=== PATIENT | male | born 1930 | race Caucasian/White ===

== ENCOUNTER 2019-07-03 21:03 | Inpatient (IN) | payer MEDICARE ==
[~2019-07-03 21:03] MED LIST: LEVOFLOXACIN500 MG PO; MUCINEX600 MG PO
--- NOTE | 2019-07-04 01:30 | NUR ---
NEW ADMIT TO DOCTOR YOUNG FOR [facility] RELATED TO ALTERED MENTAL STATUS. RECEIVED FROM EMS CREW. PATIENT REPORTEDLY COMBATIVE DURING TRANSPORT BUT CALM UPON ARRIVAL TO [facility]. PATIENT DAUGHT CALLED AND ADMIT CONSENT RECEIVED. DNR STATUS RECEIVED. CODE WORD OF CRUISIN RECEIVED. PATIENT BECAUSE INCREASING AGITATED AND ANXIOUS AFTER ARRIVAL. ATTEMPTS TO STAND WITHOUT ASSIST. UNABLE TO REDIRECT. PRN ATIVAN 0.5 MG IM GIVEN FOR ANXIETY AND PRM HALDOL 2 MG IM GIVEN FOR ONSET OF UNSAFE PSYCHOTIC BEHAVIOUR. CONTINUE TO MONITOR FOR SAFETY.
[2019-07-04] MEDS ORDERED: TENORMIN25 MG PO (01:49)
[2019-07-04] MEDS ORDERED: LISINOPRIL20 MG PO (01:52)
[2019-07-04] MEDS ORDERED: REMERON15 MG PO (01:52)
[2019-07-04] MEDS ORDERED: ZOLOFT50 MG (01:53)
[2019-07-04] MEDS ORDERED: MELATONIN 3 MG1 TAB (01:54)
[2019-07-04] MEDS ORDERED: OMEPRAZOLE20 M1 PO (01:55)
--- NOTE | 2019-07-04 02:29 | NUR ---
RESTING IN BED WITH EYES CLOED.
[2019-07-04 04:41] VITALS: BP 148/82; BMI 21.5
[2019-07-04 05:41] LABS: BASOPHILS 0.3 % (0-2); EOSINOPHILS 1.2 % (0-7); HEMATOCRIT 40.6 % (42.0-54.0); HEMOGLOBIN 13.7 g/dL (13.5-17.5); IMMATURE GRANULOCYTES 0.9 % (0-5); LYMPHOCYTES 17.9 % (15-50); MCH 31.6 pg (26.0-34.0); MCHC 33.7 g/dL (31.0-37.0); MCV 93.5 fL (80.0-100.0); MEAN PLATELET VOLUME 9.5 fL (7.4-10.4); MONOCYTES 6.7 % (2-11); PLATELET COUNT 173 10x3/uL (130-400); RBC 4.34 10x6/uL (4.20-6.10); RDW 14.9 % (11.5-14.5); WBC 9.7 10x3/uL (4.8-10.8)
[2019-07-04 06:29] LABS: ALBUMIN 3.1 g/dL (3.4-5.0); ANION GAP 17.4 mmol/L (8-16); BILIRUBIN - TOTAL 0.82 mg/dL (0.2-1.3); CALCIUM 8.4 mg/dL (8.5-10.1); CHOL - HDL RATIO 3.8 ratio (2.3-4.9); CREATININE - SERUM 1.7 mg/dL (0.6-1.3); LDL-HDL RATIO 2.3 ratio (1.5-3.5); POTASSIUM - SERUM 3.4 mmol/L (3.5-5.1); PROTEIN - SERUM 6.8 g/dL (6.4-8.2); THYROID STIMULATING HORMONE 5.16 uIU/mL (0.36-3.74)
[2019-07-04 08:00] VITALS: BP 174/93
--- NOTE | 2019-07-04 08:00 | NUR ---
PT IS AWAKE AND ALERT TO SELF ONLY. CALM AND COOPERATIVE WITH ASSESSMENT. PRESCRIBED MEDS PROVIDED ORDERED. MED COMPLIANT. PT CAN BE VERY DEMANDING AT TIMES WITH STAFF. PT YELLS OUT FOR NO REASON. HARD TO REDIRECT AT TIMES. REDIRECT AND REORIENT NEEDED. FALL PRECAUTIONS IN PLACE. WILL CPOC.
[2019-07-04 08:46] VITALS: Wt 77.8 kg
[2019-07-04 12:08] LABS: APPEARANCE HAZY (CLEAR); BILIRUBIN NEGATIVE (NEGATIVE); COLOR YELLOW (YELLOW); EPITHELIAL CELLS 0-5 /hpf (0-5); GLUCOSE NEGATIVE (NEGATIVE); KETONE SMALL mg/dL (NEGATIVE); NITRITE NEGATIVE (NEGATIVE); PROTEIN NEGATIVE (NEGATIVE); RED CELLS - URINE RARE /hpf (0-5); SPECIFIC GRAVITY 1.015 (1.005-1.020); UROBILINOGEN NORMAL (NORMAL)
[2019-07-04 12:10] LABS: AMORPHOUS SEDIMENT <1+ /lpf (NONE SEEN); BACTERIA FEW /hpf (NEGATIVE); GRANULAR CAST RARE /lpf (NONE SEEN); MUCUS <1+ /lpf (NONE SEEN)
[2019-07-04 20:00] VITALS: BP 158/78
--- NOTE | 2019-07-04 23:50 | NUR ---
B) Patient is alert and oriented to self, very needy and attention seeking, calling out to staff constantly wanting someone to do something for him constantly I) Administered scheduled medications as ordered, redirected as needed, R) Mediation compliant, intrusive and needy, P) Continue plan of care.
[2019-07-05 05:16] LABS: RAPID PLASMA REAGIN Non Reactive (Non Reactive)
--- NOTE | 2019-07-05 07:18 | NUR ---
The patient is confused. He has poor insight into his situation. He tries to stand to walk, but he is unable to walk and he has fallen before coming to [facility]. He asks a lot of questions and wants to be taken care of at that time. He is in a jacob chair and needs assistance to transfer. Provide prescribed meds. Continue POC.
--- NOTE | 2019-07-05 08:37 | PSY ---
PATIENT NAME:SARA POWER MEDICAL RECORD: [id number] : [birth year] LOCATION:[facility] ADMISSION DATE: 07/03/19 ACCOUNT: [id number] PSYCHIATRIC EVALUATION DATE OF EVALUATION: 07/04/19 IDENTIFYING DATA: The patient is 88 years old and he is admitted to the hospital on a voluntary basis. CHIEF COMPLAINT: Aggression. HISTORY OF PRESENT ILLNESS: The patient lives in a local intermediate and he became combative and aggressive with staff. The patient himself has no recollection of this. He was sent to the hospital for evaluation and treatment of these symptoms and was very aggressive and disorganized and required p.r.n. medication to calm him upon admission. Today, he is more cooperative. He is certainly calm, but he is denying that he would seek to harm himself. He also has no thoughts of harming others and has no recollection for the circumstances that brought him here. PAST MEDICAL HISTORY: Significant for hypertension, atrial fibrillation, chronic back pain, benign prostatic hypertrophy. PAST PSYCHIATRIC HISTORY: Significant for an established diagnosis of dementia, although I do not know who, when or how that diagnosis was made. FAMILY HISTORY: Unknown. ALLERGIES: AMBIEN, PENICILLIN AND BENADRYL. CURRENT MEDICATIONS: Include Atenolol, Levaquin, lisinopril, Remeron, Zoloft, melatonin, and Mucinex. SOCIAL HISTORY: The patient is . He does have adult children involved with his care. He is not able to provide much in the way of background history. He does not smoke. He does drink, but he denies it was ever excessive. MENTAL STATUS EXAMINATION: The patient is awake, alert and oriented to person, place and somewhat to time and situation. His mood is flat. His affect is constricted. Thought processes are circumstantial. Memory, concentration, and abstraction abilities are moderately impaired and he denies any intent to harm himself or others as well as psychotic symptoms. ASSETS: Supportive family members. LIABILITIES: Limited insight. DIAGNOSTIC IMPRESSION: AXIS I: Major neurocognitive disorder of the Alzheimer's type with behavioral disturbances. AXIS II: None. AXIS III: Hypertension, atrial fibrillation, chronic back pain, gastroesophageal reflux disease, benign prostatic hypertrophy. AXIS IV: Moderate. AXIS V: Global assessment of functioning is 30. PLAN: At this time, the patient is admitted to the hospital secondary to aggressive behavior associated with a dementing illness. He will be comprehensively evaluated from both a medical, psychological, and social standpoint. His long-term prognosis is guarded. TRANSINT:[id number] Voice Confirmation ID: [id number] DOCUMENT ID: [id number] MOJGAN YOUNG MD at 0837 CC: [id number] DICTATION DATE: 07/04/19 1345 DISTRIBUTION ENGINEER: 07/04/19 1404 ADM IN [place] [id number] [place] [address]
--- NOTE | 2019-07-05 09:40 | NUR ---
The patient said he needed to go to the bathroom right now. Took the patient to his room and he had explosive diarrhea in his pants and after he sat on the toilet. Obtained a CDT sample and sent it to the lab.
[2019-07-05 11:30] VITALS: BP 139/81
[2019-07-05 20:28] VITALS: BP 171/81
--- NOTE | 2019-07-06 00:39 | NUR ---
PATIENT IS VERY CONFUSED, HOLLERING OUT, CAN BE LITTLE COMBATIVE AT TIMES, HE IS DEMANDING, HE IS COMPLIANT WITH MEDS, NO SIDE EFFECTS NOTED. TOTALLY DEPENDENT WITH CARE. CAN MAKE HIS NEEDS KNOWN. WILL FOLLOW POC
[2019-07-06 09:56] VITALS: BP 173/97
--- NOTE | 2019-07-06 13:31 | NUR ---
Nutrition Follow-up: Diet: Regular PO intake: ~28% average x last 6 meals Last BM: . WT: 154# (07/04/19) Meds noted: cosme guerra. No new labs. Continue Regular diet. Will add Ensure with meals. RD following.
--- NOTE | 2019-07-06 14:34 | NUR ---
PATIENT CALM, CONFUSED, COOPERATIVE, DEMANDING AT TIMES, NO AGGRESSION NOTED, YELLS AT TIMES, MEDS ADMIN PER ORDERS WITH COMPLETE MED COMPLIANCE NOTED. CONT POC DIRECTED.
--- NOTE | 2019-07-06 15:22 | PN ---
PATIENT:SARA POWER MEDICAL RECORD: [id number] LOCATION:[facility] ADMISSION DATE: 07/03/19 PROGRESS NOTE DATE OF SERVICE: 07/05/2019 SUBJECTIVE: The patient's case was discussed with staff. He has no new complaint. OBJECTIVE: The patient is in good behavioral control. He has limited insight about his condition. He tolerates his medicines well. He is not eating adequately and did not sleep well last night. ASSESSMENT: Dementia. PLAN: The patient is going to be started on Megace to assist with appetite stimulation and I am going to give him trazodone to assist with sleep consolidation. TRANSINT:[id number] Voice Confirmation ID: [id number] DOCUMENT ID: [id number] MOJGAN YOUNG MD at 1522 CC: [id number] DICTATION DATE: 07/05/19 1018 PROJECT RESERVOIR ENGINEER: 07/05/19 1037 [facility] [address] [place] [address]
[2019-07-06 20:00] VITALS: BP 130/79
--- NOTE | 2019-07-06 21:22 | NUR ---
PATIENT IS VERY CONFUSED, HOLLERS OUT, DEMANDING, COMPLIANT WITH MEDS, NO ADVERSE REACTION TO MEDS NOTED, DEPENDENT UPON STAFF FOR CARE. WILL FOLLOW POC
[2019-07-07 08:02] VITALS: BP 174/92
--- NOTE | 2019-07-07 11:35 | NUR ---
PATIENT SEDATED THIS MORNING AND UNABLE TO TAKE MORNING MEDS.
[2019-07-07 12:10] LABS: T4 THYROXINE 6.7 ug/dL (4.7-13.3); THYROID STIMULATING HORMONE 2.48 uIU/mL (0.36-3.74)
--- NOTE | 2019-07-07 14:14 | PN ---
PATIENT:SARA POWER MEDICAL RECORD: [id number] LOCATION:[facility] ADMISSION DATE: 07/03/19 PROGRESS NOTE DATE OF SERVICE: 07/06/2019 SUBJECTIVE: The patient's case was discussed with staff. He has no new complaint. OBJECTIVE: The patient is in good behavioral control with limited insight about his condition. He is not sleeping adequately and he is not eating adequately. ASSESSMENT: Dementia. PLAN: I am going to continue the patient on the Megace for its appetite stimulating properties and will increase the dose of the trazodone. TRANSINT:[id number] Voice Confirmation ID: [id number] DOCUMENT ID: [id number] MOJGAN YOUNG MD at 1414 CC: [id number] DICTATION DATE: 07/06/19 1550 LOAN FUNDER: 07/07/19 [address] [facility] [address] [place] [id number]
--- NOTE | 2019-07-07 17:59 | NUR ---
The patient remains sleepy this pm, he awakened to let staff he had to go to the bathroom and then he fell back to sleep. He ate a few bites of dinner and went to sleep eating. No aggression at this time.
[2019-07-07 20:10] VITALS: BP 152/83
--- NOTE | 2019-07-07 21:44 | NUR ---
RECEIVED IN DAYROOM. RESTING IN RECLINER WITH EYES OPEN. CALM AND COOPERATIVE WITH CARE AND ASSESSMENT. NO AGGRESSIVE BEHAVIOR. REDIRECT AND REORIENT NEEDED. CONTINUES TO REST IN RECLINER AT THIS TIME. CONTINUE PLAN OF CARE.
[2019-07-08 08:00] VITALS: BP 151/84
--- NOTE | 2019-07-08 08:19 | NUR ---
The patient is sitting in the hallway screaming for water. Provided the patient two cups of water and he then continues to scream for water. He is in a jacob chair and asking staff to get him up so that he can walk. Provide prescribed meds. The patient will require crushed meds in pudding or food. Continue POC.
--- NOTE | 2019-07-08 12:03 | NUR ---
Offered the patient his lunch and offered to feed him, but he said "I need someone to massage my hand." He refused to eat at this time.
--- NOTE | 2019-07-08 12:10 | NUR ---
Offered to feed the patient, he refused, he said "I want you to move my hand." He did not want to be assisted to eat, he is drinking his ensure.
--- NOTE | 2019-07-08 13:05 | PN ---
PATIENT:SARA POWER MEDICAL RECORD: [id number] LOCATION:[facility] ADMISSION DATE: 07/03/19 PROGRESS NOTE DATE OF SERVICE: 07/07/2019 SUBJECTIVE: The patient's case was discussed with staff. He has no new complaint. OBJECTIVE: The patient is disorganized. He was quite agitated last night and received p.r.n. Haldol and Ativan. He has no recollection of this. He is clearly quite confused and easily agitated for reasons that are not entirely clear. ASSESSMENT: Dementia. PLAN: I am going to start the patient on a scheduled dose of Trilafon at bedtime. Trilafon is being used to help with his agitated behavior. He will be monitored for clinical changes associated with its use. TRANSINT:[id number] Voice Confirmation ID: [id number] DOCUMENT ID: [id number] MOJGAN YOUNG MD at 1305 CC: [id number] DICTATION DATE: 07/07/19 1559 RAILWAY ENGINEER: 07/08/19 0201 ADM IN [place] [id number] [place] [id number]
--- NOTE | 2019-07-08 19:58 | NUR ---
RECEIVED IN DAYROOM. SITTING IN A CHAIR WITH PEERS AT HIS SIDE. CALM AND COOPERATIVE WITH CARE AND ASSESSMENT. NO SIGNS OF AGGRESSION. CONTINUES TO SIT CALMLY IN DAYROOM. CONTINUE PLAN OF CARE
[2019-07-08 20:24] VITALS: BP 127/67
[2019-07-09 08:17] VITALS: BP 123/65
--- NOTE | 2019-07-09 09:10 | NUR ---
SPOKE WITH DR. GALAN ABOUT PT URINE RESULTS. NO GROWTH AT DAY ONE. NO SIGNIFICANT ABNORMALITIES NOTED IN URINE CULTURE. NO FEVER OR S/SX NOTED. NO NEW ORDER AT THIS TIME.
--- NOTE | 2019-07-09 10:00 | NUR ---
PT SITTING IN RECINLER CHAIR AT THIS TIME. NO ACUTE DISTRESS NOTED. PT DOES YELL OUT AT TIMES. REDIRECT AND REORIENT NEEDED. PT IS ALERT CONFUSED AND ORIENTED TO SELF ONLY. NO AGGRESSIVE BEHAVIOR NOTED AT THIS TIME. PT CAN MAKE SOME NEEDS KNOWN. PT COOPERATIVE WITH STAFF WITH ASSESSMENTS, VITALS AND MEDS. CHAIR ALARM IN PLACE AND ACTIVE. WILL CONT PLAN OF CARE.
--- NOTE | 2019-07-09 14:50 | NUR ---
SPOKE WITH PT SET DAUGHTER AT THIS TIME. PASSCODE GIVEN. SHE ASKED IF SHE THOUGHT PT WAS OKAY FOR VISITORS TODAY. NURSE INQUIRED WITH OTHER NURSE. PT BEHAVIOR HAS BEEN GOOD THIS SHIFT. VISITORS ALLOWED.
--- NOTE | 2019-07-09 15:25 | NUR ---
nurse applied barrier cream to front periarea and to head glans of penis. foreskin pulled down as well. applied cream to back periarea.
--- NOTE | 2019-07-09 18:16 | NUR ---
pt was eating dinner when he became choked. mht sat pt up and ceased feeding. pt took couple of sips of water per mht and did not swallow any of his water. nurse noted clear lung sounds bilateral anterior and posteior. will cont to monitor.
--- NOTE | 2019-07-09 19:22 | NUR ---
RECEIVED IN DAYROOM. RESTING IN RECLINER WITH EYES OPEN. CALM AND COOPERATIVE WITH CARE AND ASSESSMENT. NO AGGRESSIVE BEHAVIOR. REDIRECT AND REORIENT NEEDED. WATCHING TV AT THIS TIME. CONTINUE PLAN OF CARE.
[2019-07-09 20:29] VITALS: BP 101/60
--- NOTE | 2019-07-10 10:00 | NUR ---
ALERT, CALM, COOPERATIVE, NO BEHAVIORAL ISSUES NOTED AT THIS TIME. MEDS ADMIN PER ORDERS WITH COMPLETE MED COMPLIANCE NOTED. CONT POC DIRECTED.
[2019-07-10 10:23] VITALS: BP 146/82
--- NOTE | 2019-07-10 13:49 | PN ---
PATIENT:SARA POWER MEDICAL RECORD: [id number] LOCATION:[facility] ADMISSION DATE: 07/03/19 PROGRESS NOTE DATE OF SERVICE: 07/08/2019 SUBJECTIVE: The patient's case was discussed with staff. He has no new complaint. OBJECTIVE: The patient is in good behavioral control with limited insight about his situation. ASSESSMENT: Dementia. PLAN: Brief supportive and educational interventions were made. Long-term prognosis is guarded. TRANSINT:[id number] Voice Confirmation ID: [id number] DOCUMENT ID: [id number] MOJGAN YOUNG MD at 1349 CC: [id number] DICTATION DATE: 07/08/19 1405 MARKET RISK MANAGER: 07/08/19 1456 ADM IN [place] [id number] [place] [address]
--- NOTE | 2019-07-10 13:49 | PN ---
PATIENT:SARA POWER MEDICAL RECORD: [id number] LOCATION:[facility] ADMISSION DATE: 07/03/19 PROGRESS NOTE DATE OF SERVICE: 07/09/2019 SUBJECTIVE: The patient's case was discussed with staff. He has no new complaint. OBJECTIVE: The patient is in good behavioral control. He is eating and sleeping reasonably well. He has not been aggressive. He is only partially oriented and so far he has tolerated his medicines well. ASSESSMENT: Dementia. PLAN: Current medicines have been reviewed and will be maintained. I anticipate he can be transitioned out of the hospital soon if this level of improvement continues. TRANSINT:[id number] Voice Confirmation ID: [id number] DOCUMENT ID: [id number] MOJGAN YOUNG MD at 1349 CC: [id number] DICTATION DATE: 07/09/19 1239 MEDICAL CHEMIST: 07/09/19 1333 ADM IN [facility] [address] [place] [address]
[2019-07-10 20:31] VITALS: BP 127/56
--- NOTE | 2019-07-10 21:09 | NUR ---
RECEIVED IN DAYROOM. SITTING IN A RECLINER WITH STAFF BY HIS SIDE. CALM AND COOPERATIVE WITH CARE AND ASSESSMENT. NO SIGNS OF AGGRESSION. REDIRECT AND REORIENT NEEDED. RESTING IN BED WITH EYES CLOSED AT THIS TIME. CONTINUE PLAN OF CARE
[2019-07-11 10:10] VITALS: BP 129/69
--- NOTE | 2019-07-11 15:10 | PN ---
PATIENT:SARA POWER MEDICAL RECORD: [id number] LOCATION:[facility] ADMISSION DATE: 07/03/19 PROGRESS NOTE DATE OF SERVICE: 07/10/2019 SUBJECTIVE: The patient's case was discussed with staff. He has no new complaint. OBJECTIVE: The patient denies intent to harm himself or others. He is tolerating his medicines well. He is not overtly aggressive today. He does have some irritability. Unfortunately, he is not sleeping adequately, but he is receiving Megace to assist with appetite stimulation. TRANSINT:[id number] Voice Confirmation ID: [id number] DOCUMENT ID: [id number] MOJGAN YOUNG MD at 1510 CC: [id number] DICTATION DATE: 07/10/19 1557 WORK STATION SUPPORT SPECIALIST: 07/10/19 2300 ADM IN [facility] [address] [place] [address]
--- NOTE | 2019-07-11 15:58 | NUR ---
ALERT, CALM, COOPERATIVE, DEMANDING, NO AGGRESSION, CONT CONFUSION. COMPLIANT WITH MEDS, COOPERATIVE WITH PLAN OF CARE. CONT POC DIRECTED.
[2019-07-11 22:07] VITALS: BP 130/70
--- NOTE | 2019-07-12 00:52 | NUR ---
B) Patient is alert and oriuented to person and place, restless and anxious, demanding and yelling out I) Administered scheduled medications as ordered, PRN Ativan 0.5 mg IM and Haldol 2 mg IM at 19:59, R) Medication compliant, resting quietly in his bed now. P) Continue plan of care.
--- NOTE | 2019-07-12 09:41 | PN ---
PATIENT:SARA POWER MEDICAL RECORD: [id number] LOCATION:[facility] ADMISSION DATE: 07/03/19 PROGRESS NOTE DATE OF SERVICE: 07/11/2019 SUBJECTIVE: The patient's case was discussed with staff. He has no new complaint. OBJECTIVE: The patient is disorganized, but less agitated than he has been. He is easily angered, but can be redirected. I think that this does represent an improvement in his baseline level of functioning from when he initially presented here; however, it is not going to be practical on a long-term basis for him to always have staff in the room present with him. I do think that he is a potentially labile individual who will require high degree of supervision. I am going to start him on Namenda today. Hopefully, that will improve his cognitive processes some. TRANSINT:[id number] Voice Confirmation ID: [id number] DOCUMENT ID: [id number] MOJGAN YOUNG MD at 0941 CC: [id number] DICTATION DATE: 07/11/19 1553 STRAP BUCKLER MACHINE: 07/12/19 0400 ADM IN [facility] [address] [place] [address]
[2019-07-12 10:05] VITALS: BP 122/64
--- NOTE | 2019-07-12 19:36 | NUR ---
RECEIVED IN DAYROOM. SITTING IN A RECLINING CHAIR. CALM AND COOPERATIVE WITH CARE AND ASSESSMENT. NO SIGNS OF AGGRESSION. REDIRECT AND REORIENT NEEDED. RESTING IN A RECLINING CHAIR OUTSIDE OF NURSES STATION AT THIS TIME. CONTINUE PLAN OF CARE
[2019-07-12 20:29] VITALS: BP 127/72
--- NOTE | 2019-07-13 02:03 | NUR ---
IN [place] YELLING OUT LOUDLY. ATTEMPTS TO STAND WITHOUT ASSIST. VERY CONFUSED. INCREASING ANXIETY. PRN ATIVAN 0.5 MG GIVEN FOR ANXIETY. PRN HALDOL 2 MG IM GIVEN FOR ONSET OF UNSAFE PSYCHOTIC BEHAVIOR. CONTINUE TO MONITOR FOR SAFETY.
[2019-07-13 09:50] VITALS: BP 153/87
--- NOTE | 2019-07-13 14:21 | PN ---
PATIENT:SARA POWER MEDICAL RECORD: [id number] LOCATION:[facility] ADMISSION DATE: 07/03/19 PROGRESS NOTE DATE OF SERVICE: 07/12/2019 SUBJECTIVE: The patient's case was discussed with staff. He has no new complaint. OBJECTIVE: The patient is in good behavioral control today, but last night he required p.r.n. medication because of his agitation. In questioning him about the events, he has no recollection of what happened. Based on this, I am going to discontinue the Trilafon and we will start him on a scheduled dose of Geodon for his agitation. I am going to give him 20 mg at bedtime. TRANSINT:[id number] Voice Confirmation ID: [id number] DOCUMENT ID: [id number] MOJGAN YOUNG MD at 1421 CC: [id number] DICTATION DATE: 07/12/19 1032 HOSPICE CONSULTANT: 07/12/19 1300 ADM IN [place] [id number] [place] [id number]
--- NOTE | 2019-07-13 16:25 | NUR ---
Nutrition Follow-up: Diet: Regular [facility] Soft with Chopped Meats + Ensure with and inbetween meals PO intake: ~59% average x last 9 meals Last BM: 07/12/19 x 2. WT: 148.8# (07/03/19); refused weekly wts this week. Meds noted: cosme guerra. no new labs. Continue current diet and appetite stimulant. Encourage PO intake. RD following.
--- NOTE | 2019-07-13 17:31 | NUR ---
The patient is awake he has poor insight into his situation. He has not been yelling out as much today. He has been trying to eat and drink. He remains confused, but he has not shown any aggression today. The patient needs assist with transfers. He is sitting in a jacob chair. He tries to stand up on his own. Provide prescribed meds. The patient is compliant with meds. Continue POC.
--- NOTE | 2019-07-13 23:02 | NUR ---
RECEIVED PATIENT SITTING IN A CHAIR IN THE DAYROOM. PATIENT PULLS HIS CLOTHES OFF. YELLS AND CURSES. DEMANDING AND WILL TELL YOU TO LEAVE AND NEVER COME BACK. DISRUPTIVE TO UNIT. ADMINISTER MEDS AND MONITOR COMPLIANCE. REDIRECT FOR DISRUPTIVE BEHAVIORS. MED COMPLIANT. POOR REDIRECTION DUE TO IMPAIRED ABILITY TO PROCESS INFORMATION. CONTINUE POC AND PROVIDE SAFE ENVIRONMENT.
[2019-07-14 00:28] VITALS: BP 133/60
[2019-07-14 09:04] VITALS: BP 151/82
--- NOTE | 2019-07-14 14:44 | NUR ---
The patient is awake he has moments where he yells out and he has tried to get up out of his jacob chair, he sleeps intermittantly. He has not shown any aggression today, but he is confused and he has poor insight into his reality. Provide prescribed meds. The patient is compliant with meds. Continue POC.
--- NOTE | 2019-07-14 16:20 | PN ---
PATIENT:SARA POWER MEDICAL RECORD: [id number] LOCATION:[facility] ADMISSION DATE: 07/03/19 PROGRESS NOTE DATE OF SERVICE: 07/13/2019 SUBJECTIVE: The patient's case was discussed with staff. He has no new complaint. OBJECTIVE: The patient required p.r.n. medication last night because of some agitation. He has pretty limited insight about his situation. Today, he is fairly sleepy. ASSESSMENT: Dementia. PLAN: I am going to increase the patient's nighttime dose of trazodone to assist with sleep consolidation. Efforts now will be made to help him get back on an appropriate day-night schedule. His long-term prognosis is guarded. TRANSINT:[id number] Voice Confirmation ID: [id number] DOCUMENT ID: [id number] MOJGAN YOUNG MD at 1620 CC: [id number] DICTATION DATE: 07/13/19 1615 WELL SERVICE FLOOR WORKER: 07/14/19 0329 ADM IN [place] [id number] [place] [id number]
--- NOTE | 2019-07-14 18:46 | NUR ---
A phone call was made from a male that says he is a friend of Mr. Bautista Porter, but he did not have the code word. Explained to him that without a code word we can not confirm or deny the patient is here. he was very persistant saying he knew him for fifty years. Called the patient's daughter to let her be aware.
[2019-07-14 20:00] VITALS: BP 94/58
--- NOTE | 2019-07-15 00:20 | NUR ---
B) Patient is alert and oriented to person, demanding and attention seeking at times, calling out 'help me' anytime he sees staff I) Administered scheduled medications as ordered, redirected as ordered, R) Medication compliant, resting quietly now P) Continue plan of care.
[2019-07-15 09:09] VITALS: BP 141/85
--- NOTE | 2019-07-15 13:58 | PN ---
PATIENT:SARA POWER MEDICAL RECORD: [id number] LOCATION:[facility] ADMISSION DATE: 07/03/19 PROGRESS NOTE DATE OF SERVICE: 07/14/2019 SUBJECTIVE: The patient's case was discussed with staff. He has no new complaint. OBJECTIVE: The patient is in good behavioral control, although he has been restless. He is not eating or sleeping very well, but I am viewing yesterday as an isolated event. Since he had been eating and sleeping better on the whole. ASSESSMENT: Dementia. PLAN: The patient has improved. I think if this level of improvement continues, he can reasonably be discharged after the weekend. TRANSINT:[id number] Voice Confirmation ID: [id number] DOCUMENT ID: [id number] MOJGAN YOUNG MD at 1358 CC: [id number] DICTATION DATE: 07/14/19 1701 FAMILY ASSISTANT: 07/14/19 1847 ADM IN [facility] [address] [place] [address]
--- NOTE | 2019-07-15 16:08 | NUR ---
FAMILY HERE FOR VISIT, ALERT, CALM, COOPERATIVE, QUITE DEMANDING AT TIMES. MEDS ADMIN PER ORDERS WITH COMPLETE MED COMPLIANCE NOTED. COOPERATIVE WITH POC, CONT POC DIRECTED.
[2019-07-15 19:51] VITALS: BP 119/57
--- NOTE | 2019-07-15 21:12 | NUR ---
B.) PT IS ALERT AND ORIENTED TO SELF ONLY. HE IS RECEIVED IN HIS RICARDO-CHAIR. HE IS NEEDY AT TIMES BUT PLEASANT WITH STAFF. HE IS NOT YELLING OUT HE USUALLY DOES. I.) PROVIDED PM MEDICATIONS. REDIRECT OFTEN. R.) COMPLIANT WITH ALL MEDICATIONS. DIFFICULT TO REDIRECT. P.) WILL CONTINUE TO MONITOR.
--- NOTE | 2019-07-15 21:50 | NUR ---
PT YELLING "GET ME OUT OF HERE." SPOKE WITH PATIENT AND EXPLAINED WHERE HE AND TO NOT BE YELLING BECAUSE PATIENT'S AROUND HIM COULD NOT SLEEP. PT ASKED IF I COULD GIVE HIM A TRANQUILIZER. ATIVAN PO ADMINISTERED FOR ANXIETY AND PT REQUEST.
[2019-07-16 08:00] VITALS: BP 138/76
--- NOTE | 2019-07-16 11:17 | PN ---
PATIENT:SARA POWER MEDICAL RECORD: [id number] LOCATION:[facility] ADMISSION DATE: 07/03/19 PROGRESS NOTE DATE OF SERVICE: 07/15/2019 SUBJECTIVE: The patient's case was discussed with staff. He has no new complaint. OBJECTIVE: The patient is in good behavioral control. He has limited insight about his situation. ASSESSMENT: No change in diagnoses. PLAN: Brief supportive and educational interventions were made. Long-term prognosis is guarded. TRANSINT:[id number] Voice Confirmation ID: [id number] DOCUMENT ID: [id number] MOJGAN YOUNG MD at 1117 CC: [id number] DICTATION DATE: 07/15/19 1442 CABINET PROFESSIONAL: 07/15/19 1538 ADM IN [place] [id number] [place] [address]
--- NOTE | 2019-07-16 16:32 | NUR ---
PATIENT HAS BEEN CALM THUS FAR THIS SHIFT, RESTING CALMLY IN RECLINER, CONT. VERY CONFUSED AND DELUSIONAL. STATED, "HELP! WE MUST HURRY AND GO TO [employer]!" MEDS ADMIN THIS A.M. ORDERED WITH COMPLETE MED COMPLIANCE NOTED, COOPERATIVE WITH STAFF, NO AGGRESSION NOTED.
[2019-07-16 19:44] VITALS: BP 108/56
--- NOTE | 2019-07-16 21:22 | NUR ---
RECEIVED IN DAYROOM. SITTING IN A RECLINING CHAIR WITH PEERS AT HIS SIDE. CALM AND COOPERATIVE WITH CARE AND ASSESSMENT. NO SIGNS OF AGGRESSION. REDIRECT AND REORIENT NEEDED. CONTINUES TO REST QUIETLY AT THIS TIME. CONTINUE PLAN OF CARE
--- NOTE | 2019-07-16 23:01 | NUR ---
PT SCREAMING AND ATTEMPTING TO THROW HIMSELF INTO THE FLOOR OF HIS ROOM HE IS DIFFICULT TO REDIRECT. PRN ATIVAN 0.5 MG IM ADMINISTERED TO LEFT VASTUS LATERALIS. WILL CONTINUE TO MONITOR.
--- NOTE | 2019-07-16 23:45 | NUR ---
PT RESTING CALMLY IN BED WITH EYES CLOSED. WILL CONTINUE TO MONITOR.
[2019-07-17 09:38] VITALS: BP 121/75
--- NOTE | 2019-07-17 13:05 | NUR ---
PT SITTING IN RECLINING CHAIR IN DAYRROM WITH PEERS. CALM AND COOPERATIVE WITH ASSESSMENT. PRESCRIBED MEDS PROVIDED ORDERED. MED COMPLIANT. REDIRECT AND REORIENT NEEDED. FALL PRECAUTIONS IN PLACE. WILL CPOC.
--- NOTE | 2019-07-17 14:00 | PN ---
PATIENT:SARA POWER MEDICAL RECORD: [id number] LOCATION:[facility]VIN Pérez ADMISSION DATE: 07/03/19 PROGRESS NOTE DATE OF SERVICE: 07/16/2019 SUBJECTIVE: The patient's case was discussed with staff. He has no new complaint. OBJECTIVE: The patient received some p.r.n. Ativan last night for agitation. He seems better today. He is disorganized, but not openly aggressive. ASSESSMENT: Dementia. PLAN: Current medicines and therapies have been reviewed and will be maintained. Long-term prognosis is guarded. TRANSINT:[id number] Voice Confirmation ID: [id number] DOCUMENT ID: [id number] MOJGAN YOUNG MD at 1400 CC: [id number] DICTATION DATE: 07/16/19 1210 PAYMASTER OF PURSES: 07/16/19 1308 ADM IN [place] [address] [place] [address]
--- NOTE | 2019-07-17 14:51 | NUR ---
Nutrition Follow-up: Diet: Regular [facility] Soft with Chopped meats + Ensure with meals and inbetween PO intake: ~55% x last 9 meals Last BM: 07/17/19. WT: 150.4# (07/16/19); Admit wt: 148# (07/04/19) Meds noted: charlie aguiar. No new labs. Continue current diet and oral nutrition supplement. Continue megace as medically feasible. Encourage PO intake. RD following.
[2019-07-17 20:20] VITALS: BP 137/81
--- NOTE | 2019-07-17 22:43 | NUR ---
B.) PT IS ALERT AND ORIENTED TO SELF ONLY. HE IS RECEIVED IN HIS RICARDO-CHAIR IN THE DAYROOM. HE IS DEMANDING STAFF TO STOP WHAT THEY WERE DOING IN ORDER TO SIT WITH HIM. I.) PROVIDED PM MEDICATION. REDIRECT OFTEN. R.) COMPLIANT WITH ALL MEDICATIONS. DIFFICULT TO REDIRECT. P.) WILL CONTINUE TO MONITOR.
[2019-07-18 08:05] VITALS: BP 151/81
--- NOTE | 2019-07-18 12:35 | PN ---
PATIENT:SARA POWER MEDICAL RECORD: [id number] LOCATION:[facility]VIN Pérez ADMISSION DATE: 07/03/19 PROGRESS NOTE DATE OF SERVICE: 07/17/2019 SUBJECTIVE: The patient's case was discussed with staff. He has no new complaint. OBJECTIVE: The patient is a little sedated, but arousable. Nursing staff tells me he has been asleep through much of the day. He has not responded very well to the Geodon and that he keeps having agitation, particularly at night. I am going to try and manage him on a scheduled dose of a benzodiazepine. Hopefully, that will improve his agitation and he will not require p.r.n. medicines on a regular basis, especially since they are so sedating even though they are fairly small in dose. TRANSINT:[id number] Voice Confirmation ID: [id number] DOCUMENT ID: [id number] MOJGAN YOUNG MD at 1235 CC: [id number] DICTATION DATE: 07/17/19 1520 PLASTIC PARTS FABRICATOR TRIMMER: 07/17/19 1841 ADM IN [facility] [address] [place] [address]
--- NOTE | 2019-07-18 16:57 | NUR ---
PT IS AWAKE AND ALERT TO PERSON ONLY. PRESCRIBED MEDS PROVIDED ORDERED. MED COMPLIANT. NO AGGRESSION NOTED. REDIRECT AND REORIENT NEEDED. FALL PRECAUTIONS IN PLACE. WILL CPOC.
[2019-07-18 20:16] VITALS: BP 160/70
--- NOTE | 2019-07-18 20:38 | NUR ---
RECEIVED IN DAYROOM. SITTING IN A RECLINER WITH PEERS AT HIS SIDE. RESTLESS AT TIMES. CALM AND COOPERATIVE WITH CARE AND ASSESSMENT. NO SIGNS OF AGGRESSION. REDIRECT AND REORIENT NEEDED. CONTINUES TO SIT IN RECLINER IN DAYROOM. CONTINUE PLAN OF CARE
[2019-07-19 10:09] VITALS: BP 117/78
--- NOTE | 2019-07-19 13:22 | NUR ---
PT IS AWAKE AND ALERT TO SELF ONLY. CALM AND COOPERATIVE WITH ASSESSMENT. PRESCRIBED MEDS PROVIDED ORDERED. MED COMPLIANT, MEDS CRUSHED IN PUDDING. REDIRECT AND REORIENT NEEDED. NO AGGRESSION NOTED AT THIS TIME. FALL PRECAUTIONS IN PLACE. WILL CPOC.
--- NOTE | 2019-07-19 15:38 | PN ---
PATIENT:SARA POWER MEDICAL RECORD: [id number] LOCATION:[facility]VIN Pérez ADMISSION DATE: 07/03/19 PROGRESS NOTE DATE OF SERVICE: 07/18/2019 SUBJECTIVE: The patient's case was discussed with staff. He has no new complaint. OBJECTIVE: The patient did not sleep very well last night. I am not sure why. He is eating very well. He has not been excessively disruptive. ASSESSMENT: Dementia. PLAN: Current medicines have been reviewed and will be maintained. Long-term prognosis is guarded. TRANSINT:[id number] Voice Confirmation ID: [id number] DOCUMENT ID: [id number] MOJGAN YOUNG MD at 1538 CC: [id number] DICTATION DATE: 07/18/19 1305 CASINO ASSISTANT MANAGER: 07/18/19 2334 ADM IN [place] [address] [place] [address]
[2019-07-19 20:00] VITALS: BP 124/72
--- NOTE | 2019-07-20 00:05 | NUR ---
B.) PT IS ALERT AND ORIENTED TO SELF ONLY. HE HAS POOR INSIGHT INTO HIS SITUATION. HE IS NOT ABLE TO AMBULATE WITHOUT ASSISTANCE. HE IS RECEIVED IN THE DAYROOM IN HIS RICARDO-CHAIR. HE IS PLEASANT WITH STAFF AND ISNT YELLING OUT MUCH. I.) PROVIDED PM MEDICATIONS. REDIRECT OFTEN. R.) COMPLIANT WITH ALL MEDICATIONS. DIFFICULT TO REDIRECT. P.) WILL CONTINUE TO MONITOR.
[2019-07-20 11:24] VITALS: BP 118/65
--- NOTE | 2019-07-20 12:52 | NUR ---
NUTRITION F/U SPEECH NOTES REVIEWED. PER I&O RECORDS PT WITH GOOD INTAKE RECENT MEALS. WT UP ABOUT 2 # FROM ADMIT WT. CURRENTLY ON MEGACE. ENSURE WITH [facility] SOFT DIET. RECENT BM RECORDED ON 07/20. WILL CONTINUE TO PROVIDE DIET AND ENSURE. MONITOR PO INTAKE AND WT. RD FOLLOWING
--- NOTE | 2019-07-20 13:42 | NUR ---
ALERT, CALM, CONFUSED, NO ADVERSE BEHAVIORS NOTED. COMPLIANT WITH MEDICATIONS. CONT POC DIRECTED.
--- NOTE | 2019-07-20 15:12 | PN ---
PATIENT:SARA POWER MEDICAL RECORD: [id number] LOCATION:CAVLIN Pérez ADMISSION DATE: 07/03/19 PROGRESS NOTE DATE OF SERVICE: 07/19/2019 SUBJECTIVE: The patient's case was discussed with staff. He has no new complaint. OBJECTIVE: The patient denies intent to harm himself or others. He generally tolerates his medicines well. ASSESSMENT: Dementia. PLAN: Brief supportive and educational interventions were made. Current medicines have been reviewed and will be maintained. I anticipate he can be transitioned out of the hospital soon if this level of improvement continues. TRANSINT:[id number] Voice Confirmation ID: [id number] DOCUMENT ID: [id number] MOJGAN YOUNG MD at 1512 CC: [id number] DICTATION DATE: 07/19/19 1628 GUITAR TEACHER: 07/20/19 0244 ADM IN [facility] [address] [place] [address]
[2019-07-21 00:17] VITALS: BP 113/63
--- NOTE | 2019-07-21 01:19 | NUR ---
PATIENT IS VERY CONFUSED, HOLLERS OUT CONSTANTLY, CAN NOT FOLLOW DIRECTION, CONVERSATION, GETS AGITATED QUICKLY, COMPLIANT WITH MEDS, GAVE A ATIVAN 0.5 PO AT 2230 WITH NO RESULTS. WILL MONITOR
[2019-07-21 09:00] VITALS: BP 149/74
--- NOTE | 2019-07-21 12:59 | NUR ---
The patient is sleepy today because he stayed up all night. He is not aggressive or yelling. Held his am meds as he is too sleepy. Provide prescribed meds when he awakens. Continue POC.
--- NOTE | 2019-07-21 15:48 | PN ---
PATIENT:SARA POWER MEDICAL RECORD: [id number] LOCATION:CALVIN Pérez ADMISSION DATE: 07/03/19 PROGRESS NOTE DATE OF SERVICE: 07/20/2019 SUBJECTIVE: The patient's case was discussed with staff. He has no new complaint. OBJECTIVE: The patient denies he would seek to harm himself or others. He is tolerating his medicines well. Eye contact is fair. ASSESSMENT: No change in diagnosis. PLAN: Current medicines have been reviewed. When placement is arranged, he may be discharged. TRANSINT:[id number] Voice Confirmation ID: [id number] DOCUMENT ID: [id number] MOJGAN YOUNG MD at 1548 CC: [id number] DICTATION DATE: 07/20/19 1717 PROJECT MANAGER: 07/21/19 0339 ADM IN [facility] [address] [place] [address]
[2019-07-21 20:00] VITALS: BP 122/56
--- NOTE | 2019-07-21 20:37 | NUR ---
PATIENT IS VERY CONFUSED, ONLY ORIENTED TO PERSON, HOLLERS OUT CONSTANTLY, HE HAS STARTED THIS EVENING WITH HOLLERING AND MAKING DEMANDS, WATER, JELLO, ANY AND EVERYTHING, DEPENDENT UPON OTHERS FOR ALL NEEDS, COMPLIANT WITH MEDS. WILL FOLLOW POC
[2019-07-22 08:38] VITALS: BP 151/80
--- NOTE | 2019-07-22 11:12 | PN ---
PATIENT:SARA POWER MEDICAL RECORD: [id number] LOCATION:CALVIN Pérez ADMISSION DATE: 07/03/19 PROGRESS NOTE DATE OF SERVICE: 07/21/2019 SUBJECTIVE: The patient's case was discussed with staff. He has no new complaint. OBJECTIVE: The patient has been significantly agitated today. He has very limited insight about his situation. He is not sleeping well for reasons that are not entirely clear. His thought processes are quite disorganized. ASSESSMENT: Dementia. PLAN: The patient will be given Geodon to assist with his disorganized thoughts and disruptive aggressive behaviors. His long-term prognosis is guarded. TRANSINT:[id number] Voice Confirmation ID: [id number] DOCUMENT ID: [id number] MOJGAN YOUNG MD at 1112 CC: [id number] DICTATION DATE: 07/21/19 1709 ATMOSPHERIC TECHNICIAN: 07/21/19 1274 ADM IN [facility] [address] [place] [address]
[2019-07-22 13:34] LABS: BASOPHILS 0.2 % (0-2); HEMATOCRIT 43.7 % (42.0-54.0); HEMOGLOBIN 14.6 g/dL (13.5-17.5); IMMATURE GRANULOCYTES 1.4 % (0-5); LYMPHOCYTES 14.2 % (15-50); MCH 31.3 pg (26.0-34.0); MCHC 33.4 g/dL (31.0-37.0); MCV 93.6 fL (80.0-100.0); MEAN PLATELET VOLUME 9.7 fL (7.4-10.4); MONOCYTES 4.9 % (2-11); NEUTROPHILS 78.3 % (40-80); RBC 4.67 10x6/uL (4.20-6.10); RDW 15.1 % (11.5-14.5); WBC 13.2 10x3/uL (4.8-10.8)
[2019-07-22 14:00] LABS: PLATELET COUNT 250 10x3/uL (130-400)
[2019-07-22 14:01] LABS: ALBUMIN 3.4 g/dL (3.4-5.0); BILIRUBIN - TOTAL 0.35 mg/dL (0.2-1.3); CARBON DIOXIDE 26.2 mmol/L (21.0-32.0); CREATININE - SERUM 1.5 mg/dL (0.6-1.3); POTASSIUM - SERUM 4.2 mmol/L (3.5-5.1); PROTEIN - SERUM 6.7 g/dL (6.4-8.2)
--- NOTE | 2019-07-22 14:29 | NUR ---
The patient is demanding and he sleeps or he yelling. He is sitting in the gerichair. Provide prescribed medications. The patient is compliant with meds. Continue POC.
[2019-07-22 20:32] VITALS: BP 129/74
--- NOTE | 2019-07-22 22:02 | NUR ---
PATIENT IS CONFUSED, NO CHANGE, DEMANDING, ALWAYS HAS REQUESTS FOR VARIOUS THINGS, COMPLIANT WITH MEDS, CAN BE PLEASANT, IS GRATEFUL FOR WHAT IS DONE FOR HIM. WILL FOLLOW POC
[2019-07-23 10:04] VITALS: BP 144/81
--- NOTE | 2019-07-23 10:29 | NUR ---
PT SITTING IN W/C IN DAYAREA. PT IS ALERT CONFUSED AND ORIENTED TO SELF ONLY. PT YELLS OUT AT TIMES ASKING FOR STAFF TO COME HERE OR THAT HE NEEDS A GLASS OF WATER. STAFF PROVIDES ITEMS REQUESTED AND PT YELLS OUT FOR SOME ITEM. UNABLE TO REDIRECT YELLING AT TIMES. ENCOURAGEMENT GIVEN FOR PT TO NOT YELL OUT FOR ITEMS. PT COMPLIES AT TIMES. PT IS COMPLIANT WITH MEDS, VITALS AND ASSESSMENTS. PT CAN MAKE SOME NEEDS KNOWN. PT DID NOT HAVE BEHAVIORS ON PREVIOUS SHIFT. EGG CRATE IN PLACE DUE TO REDNESS NOTED TO BUTTOCK AREA. CHAIR ALARM IN PLACE AND ACTIVE. WILL CONT PLAN OF CARE.
--- NOTE | 2019-07-23 10:46 | PN ---
PATIENT:SARA POWER MEDICAL RECORD: [id number] LOCATION:CALVIN Pérez ADMISSION DATE: 07/03/19 PROGRESS NOTE DATE OF SERVICE: 07/22/2019 SUBJECTIVE: The patient's case was discussed with staff. He has no new complaint. OBJECTIVE: The patient was aggressive and required p.r.n. medication last night. He has no recollection of this. He is a little bit sedated today. Long-term prognosis is guarded. ASSESSMENT: Vascular dementia. PLAN: I am going to check the patient's baseline labs and we will continue him on current medicines. TRANSINT:[id number] Voice Confirmation ID: [id number] DOCUMENT ID: [id number] MOJGAN YOUNG MD at 1046 CC: [id number] DICTATION DATE: 07/22/19 1225 AUTOBODY TECHNICIAN: 07/22/19 1515 ADM IN [place] [address] [place] [id number]
--- NOTE | 2019-07-23 22:54 | NUR ---
NO CHANGE AT ALL, PATIENT IS STILL HOLLERING OUT, "WANTS THIS, WANTS THAT". COMPLIANT WITH MEDS, HOWEVER HE HAS COMPASSION FOR OTHERS AND CAN BE PLEASANAT. WILL MONITOR
[2019-07-24 02:06] VITALS: BP 140/76
[2019-07-24 07:31] VITALS: BP 129/68
--- NOTE | 2019-07-24 13:23 | PN ---
PATIENT:SARA POWER MEDICAL RECORD: [id number] LOCATION:CALVIN Bonilla113 ADMISSION DATE: 07/03/19 PROGRESS NOTE DATE OF SERVICE: 07/23/2019 SUBJECTIVE: The patient's case was discussed with staff. He has no new complaint. OBJECTIVE: The patient has pretty limited insight about his situation. He is tolerating his medicines well. He does have an elevated white count, which I will leave to the sales manager prearranged funerals to address. I would be concerned about possible infection. He is not febrile at this point. ASSESSMENT: Vascular dementia. PLAN: From a behavioral standpoint, I think we are at or very close to his baseline level of functioning and would be ready for discharge. Unfortunately, there seems to be some medical concerns that may need to be addressed. I will leave those to the appropriate specialist. TRANSINT:[id number] Voice Confirmation ID: [id number] DOCUMENT ID: [id number] MOJGAN YOUNG MD at 1323 CC: [id number] DICTATION DATE: 07/23/19 1220 PRESALES ENGINEER: 07/24/19 0349 ADM IN [facility] [address] [place] [id number]
--- NOTE | 2019-07-24 13:40 | NUR ---
THIS NURSE HEARD LOUD NOISE AND ALARM GOING OFF IN DINING ROOM. THIS NURSE WENT TO ASSESS THE SITUATION, PT WAS NOTED ON THE DINING ROOM FLOOR WITH BLOOD NOTED WITH LACERATION TO FOREHEAD. NURSE IMMEDIATLEY APPLIED PRESSURE TO STOP BLEEDING. CODE MUSCLE WAS CALLED TO HELP TRANSFER PT BACK TO CHAIR. PT SENT TO ER FOR EVAL AND TREATMENT. DATASTAGE CONSULTANT NOTIFIED. FAMILY MELANIE SHEETS AT [phone] GALAN NOTIFIED.
--- NOTE | 2019-07-24 16:40 | NUR ---
PT RETURNED BACK TO SKILLED NURSING FROM ER WITH RN PRESENT. BRUISING NOTED TO RIGHT EYE AND RIGHT CHEEK BONE. STERI STRIPS IN PLACE. FAMILY NOTIFIED. PT DENIES ANY PAIN OR DISCOMFORT AT THIS TIME. NEURO CHECKS CONTINUED.
[2019-07-24 19:48] VITALS: BP 120/69
--- NOTE | 2019-07-25 00:21 | NUR ---
B.) PT IS ALERT AND ORIENTED TO SELF ONLY. HE HAS POOR INSIGHT INTO HIS SITUATION. HE IS UNABLE TO AMBULATE WITHOUT ASSISTANCE. HE OFTEN YELLS OUT WHEN HE NEEDS SOMETHING. I.) PROVIDED PM MEDICATIONS PRESCRIBED. REDIRECT OFTEN. R.) COMPLIANT WITH ALL MEDICATIONS. CAN BE DIFFICULT TO REDIRECT AT TIMES. P.) WILL CONTINUE TO MONITOR.
[2019-07-25 08:46] VITALS: BP 161/89
--- NOTE | 2019-07-25 11:20 | NUR ---
PT IS AWAKE AND ALERT TO PERSON ONLY. PT HAS LITTLE INSIGHT INTO HIS SITUATION. CALM AND COOPERATIVE WITH ASSESSMENT. PRESCRIBED MEDS PROVIDED ORDERED. MED COMPLIANT. BRUISING NOTED TO RIGHT EYE AND RIGH CHEEK BONE. STERI STRIPS IN PLACE. NO S/SX OF INFECTION NOTED. REDIRECT AND REORIENT NEEDED. PT DOES YELL OUT AT TIMES FOR NO REASON. FALL PRECAUTIONS IN PLACE. WILL CPOC.
--- NOTE | 2019-07-25 16:18 | NUR ---
Nutrition Follow-up: Diet: Regular [facility] Soft, Chopped meats + Ensure with meals and inbetween PO intake: ~52% average x last 6 meals Last BM: 07/25/19 x 2. WT: 165# (07/24/19); Admit wt: 154# (07/04/19) Meds noted: cosme guerra. No new labs. Recommend continue current PO diet or per LINER ASSEMBLER. Continue oral nutrition supplements and appetite stimulant as medically feasible. RD following.
[2019-07-25 22:44] VITALS: BP 136/67
--- NOTE | 2019-07-25 22:48 | NUR ---
REC'D PATIENT SITTING IN A CHAIR IN THE DAYROOM. ORIENTED TO SELF ONLY. DEMANDING. YELLS TO GET HIS WAY. DISRUPTIVE TO UNIT MILEU. ADMINISTER MEDS AND MONITOR COMPLIANCE. REDIRECT FOR DISRUPTIVE BEHAVIOR. MED COMPLIANT. POOR REDIRECTION. CONTINUES TO BE DEMANDING AND YELLING DISRUPTING THE UNIT. CONTINUE POC AND PROVIDE SAFE ENVIRONMENT.
--- NOTE | 2019-07-26 11:34 | PN ---
PATIENT:SARA POWER MEDICAL RECORD: [id number] LOCATION:[facility]NA[facility]ime [facility]illaWander ADMISSION DATE: 07/03/19 PROGRESS NOTE DATE OF SERVICE: 07/25/2019 SUBJECTIVE: The patient's case was discussed with staff. He has no new complaint. OBJECTIVE: The patient took a nasty fall yesterday. He has a cut on his forehead, but no neurologic or structural damage. He is actually fairly calm today and following directions better than he has been. ASSESSMENT: Vascular dementia. PLAN: Current medicines have been reviewed and will be maintained. Long-term prognosis is guarded. TRANSINT:[id number] Voice Confirmation ID: [id number] DOCUMENT ID: [id number] MOJGAN YOUNG MD at 1134 CC: [id number] DICTATION DATE: 07/25/19 1543 OIL WELL PUMPER: 07/25/[address] [facility] [address] [place] [id number]
--- NOTE | 2019-07-26 15:59 | NUR ---
CONFUSED AND DISORIENTED.COMPLIANT WITH MEDS.DIFFICULT TO REDIRECT AT TIMES.POOR INSITE TO WHY HE IS HERE.LACERATION TO RT FOREHEAD HEALING WELL ,HAS PULLED STERI STRIPS OFF.BRUISING TO RT EYE AND CHEEK.WILL CONTINUE WITH CURRENT PLAN OF CARE,MONITOR FOR CHANGES AND SAFETY.
[2019-07-26 16:56] VITALS: BP 132/72
[2019-07-26 20:04] VITALS: BP 170/80
--- NOTE | 2019-07-27 01:41 | NUR ---
B)RECEIVED PATIENT SITTING IN THE DAYROOM. CONFUSED AND DISORIENTED. RELATED HE IS IN "[place], GOING THROUGH REHAB FOR FALLING AND HITTING MY HEAD." KEEPS TELLING THE NURSE TO CALL THE RV PLACE AND THEY WILL BUY THESE RVS AND THAT WE CAN MAKE A LOT OF MONEY. DEMANDING AND YELLS FOR ATTENTION AND TO GET WHAT HE WANTS. PATIENT CAN HAVE WATER AND HE WILL YELL FOR WATER AND RELATE "I'M DYING. I NEED WATER." I)ADMINISTER MEDS AND MONITOR COMPLIANCE. REDIRECT FOR YELLING DISRUPTIVE BEHAVIOR. R)MED COMPLIANT. POOR REDIRECTION. DIFFICULTY FOLLOWING INSTRUCTIONS. P)CONTINUE POC AND PROVIDE SAFE ENVIRONMENT.
--- NOTE | 2019-07-27 04:40 | NUR ---
PT WAS YELLING AND WAS FOUND LAYING IN THE FLOOR. PT RELATED TO NURSE "I DON'T REMEMBER FALLING." DENIES PAIN. ABRASION NOTED TO UPPER MID BACK AND BACK OF NECK AT HAIR LINE. ALSO TOLD NURSE HE TURNED HIS ALARM OFF. DIRECTOR OF EMERGENCY NURSING, EMERGENCY CONTACT MELANIE VIVEROS CONTACTED AND DR ADAMA RAMON. VS 97.3, 152/77, 71, 20 AND O2 SAT 99% GLOVE PAIRER NOTED. NEURO CHECKS INITIATED.
[2019-07-27 10:33] VITALS: BP 109/80
--- NOTE | 2019-07-27 12:58 | NUR ---
The patient is awake and alert today, he is pleasant, but demanding. He is trying to get out of the chair. He is not listening to staff when redirected. Provide prescribed meds. The patient is compliant with meds. Continue POC.
--- NOTE | 2019-07-27 14:09 | NUR ---
NUTRITION F/U PT REMAINS ON [facility] SOFT DIET. ENSURE WITH MEALS. 100% INTAKE RECENT MEALS. BM RECORDED ON 07/27/19. NOTE SOME WT INCREASE. PT CURRENTLY ON MEGACE. WILL CONTINUE TO PROVIDE DIET AND ENSURE. MONITOR PO INTAKE AND WT. RD FOLLOWING
--- NOTE | 2019-07-27 15:55 | PN ---
PATIENT:SARA POWER MEDICAL RECORD: [id number] LOCATION:CALVIN Pérez ADMISSION DATE: 07/03/19 PROGRESS NOTE DATE OF SERVICE: 07/26/2019 SUBJECTIVE: The patient's case was discussed with staff. He has no new complaint. OBJECTIVE: The patient denies intent to harm himself or others. He generally tolerates his medicines well. ASSESSMENT: Vascular dementia. PLAN: The patient is poorly oriented, but in good behavioral control. I anticipate he can be transitioned out of the hospital once placement is arranged. There are complicating factors associated with that. I would refer you to the social problems specialist load planner's notes. TRANSINT:[id number] Voice Confirmation ID: [id number] DOCUMENT ID: [id number] MOJGAN YOUNG MD at 1555 CC: [id number] DICTATION DATE: 07/26/19 1637 DREDGE MASTER: 07/27/19 0228 ADM IN [place] [address] [place] [address]
[2019-07-27 20:13] VITALS: BP 160/60
--- NOTE | 2019-07-27 21:47 | NUR ---
YELLING AND DEMANDING STAFF WAIT ON HIM IMMEDIATELY. TRYING TO GET OUT OF CHAIR HOWEVER IS UNSTEADY AND HAS HAD TWO RECENT FALLS. WOULD NOT REDIRECT TO VERBAL INSTRUCTIONS. DISRUPTIVE. HALDOL AND ATIVAN IM ADMINISTERED IM PER PHYSICIAN ORDERS.
--- NOTE | 2019-07-27 21:47 | NUR ---
CONTINUES TO YELL AND DISRUPT UNIT. WILL NOT REDIRECT TO VERBAL REDIRECTION. HALDOL AND ATIVAN IM ADMINISTERED BY Linsey GORMAN RN PER PHYSICIANS ORDERS.
--- NOTE | 2019-07-27 22:36 | NUR ---
B)RECEIVED SITTING IN THE DAYROOM. CONFUSED AND DISORIENTED. PATIENT YELLING FOR HELP RELATING "I WANT TO . JUST LET ME . HELP ME ." SEXUALLY INAPPROPRIATE FOR EXAMPLE PATIENT TOLD MHT "LET ME LIP YOU NIPPLES. I'LL LICK THEM LIKE THEY HAVE NEVER BEEN LICKED BEFORE. I'M GOING TO LICK YOUR YOU KNOW WHAT, YOUR FRUITY [place]OT[place]. LET'S JUST TAKE CARE OF EACH OTHER." I)ADMINISTER MEDS AND MONITOR COMPLIANCE. REDIRECT FOR SEXUALLY INAPPROPRIATE BEHAVIOR AND STATEMENTS OF WANTING TO . R)MED COMPLIANT. POOR REDIRECTION. CONTINUES TO YELL "I'M GOING TO . JUST LET ME . HELP ME ." P)CONTINUE POC AND PROVIDE SAFE ENVIRONMENT.
[2019-07-28] MEDS ORDERED: TENORMIN25 MG PO (10:08)
[2019-07-28] MEDS ORDERED: LISINOPRIL10 MG PO (10:08)
[2019-07-28] MEDS ORDERED: NAMENDA5 MG PO (10:09)
[2019-07-28] MEDS ORDERED: DESERYL PO (10:09)
[2019-07-28] MEDS ORDERED: KLONOPIN0.5 MG PO (10:10)
[2019-07-28] MEDS ORDERED: GEODON20 MG PO (10:10)
[2019-07-28 11:07] VITALS: BP 159/82
--- NOTE | 2019-07-28 12:54 | NUR ---
Called [facility] and they say they will pick the patient up within 45 minutes to an hour. Calling the facility [facility] to let them be aware.
--- NOTE | 2019-07-28 13:02 | NUR ---
Called the spouse and let her know the EMS will be here to pick the patient up within an hour.
--- NOTE | 2019-07-28 13:15 | NUR ---
EMS CAME TO TRANSPORT PATIENT TO [facility]. PT TOLERATED WELL AND STABLE AT TIME OF DISCHARGE. PERSONAL BELONGINGS SENT WITH PT AND FAXED COPY TO [facility]. PAPER COPY SENT WITH PT. REPORT CALLED.
--- NOTE | 2019-07-28 14:20 | PN ---
PATIENT:SARA POWER MEDICAL RECORD: [id number] LOCATION:CALVIN Pérez ADMISSION DATE: 07/03/19 PROGRESS NOTE DATE OF SERVICE: 07/27/2019 SUBJECTIVE: The patient's case was discussed with staff. He has no new complaint. OBJECTIVE: The patient denies intent to harm himself or others. He is tolerating his medicines well. He is calmer and more cooperative. ASSESSMENT: Vascular dementia. PLAN: The patient will be transitioned to a [facility] tomorrow. Long-term prognosis is guarded. TRANSINT:[id number] Voice Confirmation ID: [id number] DOCUMENT ID: [id number] MOJGAN YOUNG MD at 1420 CC: [id number] DICTATION DATE: 07/27/19 1632 LAB ENGINEER: 07/27/19 1800 DIS IN 07/28/19 [place] [address] [place] [address]
== END 2019-07-28 13:15 | DRG 57 ==
LOC: D.PSYCH 21:03
PROVIDERS: Family Medicine; ADMIT Psychiatry & Neurology Psychiatry; ATTEND Psychiatry & Neurology Psychiatry
DX: G30.1 Alzheimer's disease with late onset (principal); F02.81 Dementia in other diseases classified elsewhere, unspecified severity, with behavioral disturbance; I48.91 Unspecified atrial fibrillation; K21.9 Gastro-esophageal reflux disease without esophagitis; M19.90 Unspecified osteoarthritis, unspecified site; F41.8 Other specified anxiety disorders; R54 Age-related physical debility; K59.00 Constipation, unspecified; G47.00 Insomnia, unspecified; R63.0 Anorexia; R13.10 Dysphagia, unspecified; I12.9 Hypertensive chronic kidney disease with stage 1 through stage 4 chronic kidney disease, or unspecified chronic kidney disease; N18.3 Chronic kidney disease, stage 3 (moderate); N40.0 Benign prostatic hyperplasia without lower urinary tract symptoms

== ENCOUNTER 2019-07-24 13:57 | Emergency (ER) | payer SELFPAY ==
[~2019-07-24] VITALS: Ht 180.3 cm; Wt 75.0 kg
[~2019-07-24 13:57] MED LIST changes: +LISINOPRIL20 MG PO; +MELATONIN 3 MG1 TAB; +OMEPRAZOLE20 M1 PO; +REMERON15 MG PO; +TENORMIN25 MG PO; +ZOLOFT50 MG
[2019-07-24 14:08] VITALS: Ht 180.3 cm; Wt 75.0 kg
[2019-07-24 15:27] VITALS: BP 114/64
--- NOTE | 2019-07-25 15:20 | PN ---
PATIENT:SARA POWER MEDICAL RECORD: [id number] LOCATION:D.ER ADMISSION DATE: 07/24/19 PROGRESS NOTE DATE OF SERVICE: 07/24/2019 SUBJECTIVE: The patient's case was discussed with staff. He has no new complaint. OBJECTIVE: The patient is impaired cognitively. He is unable to adequately follow reasonable directions. He has been told numerous times not to get out of the wheelchair, but today he did while staff had backs turned to him and he fell and cut his forehead open. I happened to be there when this happened and he was transported to the Emergency Room where Steri-Strips were used to close the gap and a head CT was performed with no evidence of trauma. Unfortunately, the patient has almost no insight about his situation and is quite difficult to redirect. At this point, I am going to discontinue his Xanax and we will start him on a low dose of Klonopin for his anxiety. He will be monitored for clinical changes associated with its use. TRANSINT:[id number] Voice Confirmation ID: [id number] DOCUMENT ID: [id number] MOJGAN YOUNG MD at 1520 CC: [id number] DICTATION DATE: 07/24/19 1654 CHIEF LOCK TENDER OPERATOR: 07/24/19 2346 DEP ER 07/24/19 [place] [id number] [place] [address]
== END 2019-07-24 15:29 | disposition other institution (70) ==
LOC: D.ER 13:57
DX: S01.81XA Laceration without foreign body of other part of head, initial encounter (principal); W07.XXXA Fall from chair, initial encounter; Y93.9 Activity, unspecified; Y92.9 Unspecified place or not applicable; I10 Essential (primary) hypertension; I48.91 Unspecified atrial fibrillation; G30.9 Alzheimer's disease, unspecified; F02.80 Dementia in other diseases classified elsewhere, unspecified severity, without behavioral disturbance, psychotic disturbance, mood disturbance, and anxiety